=== PATIENT | female | born 1960 | race Caucasian/White ===

== ENCOUNTER 2018-05-07 12:20 | Emergency (ER) | payer MEDICAID ==
[~2018-05-07] VITALS: Ht 165.1 cm; Wt 117.9 kg
[~2018-05-07 12:20] MED LIST: AMLO5TAB2 PO; Blood Sugar Diagnostic VI; DEXA4VIA17 IV; GLIP5TAB13 PO; HYDR25TA4 PO; INSU100V28 SQ; LOSA50TA3 PO
--- NOTE | 2018-05-07 13:05 | NUR ---
Patient discharged to home in stable conditon. Written and verbal after care instructions given. Patient verbalizes understanding of instructions.
== END 2018-05-07 13:06 | disposition home or self-care (01) ==
LOC: ER 12:23
DX: I10 Essential (primary) hypertension (principal); E11.9 Type 2 diabetes mellitus without complications; Z88.0 Allergy status to penicillin; Z79.4 Long term (current) use of insulin; Z79.899 Other long term (current) drug therapy
CPT/HCPCS: 99283; A4663

== ENCOUNTER 2018-07-06 14:00 | Emergency (ER) | payer MEDICAID ==
[~2018-07-06] VITALS: Ht 165.1 cm; Wt 117.9 kg
[~2018-07-06 14:00] MED LIST changes: -DEXA4VIA17 IV; -HYDR25TA4 PO; -INSU100V28 SQ
--- NOTE | 2018-07-06 14:51 | NUR ---
Patient discharged to home in stable conditon. Written and verbal after care instructions given. Patient verbalizes understanding of instructions.
== END 2018-07-06 14:52 | disposition home or self-care (01) ==
LOC: ER 14:00
DX: Z76.0 Encounter for issue of repeat prescription (principal); I10 Essential (primary) hypertension; E11.9 Type 2 diabetes mellitus without complications; Z88.0 Allergy status to penicillin
CPT/HCPCS: A4663